=== PATIENT | male | born 1985 | race Caucasian/White ===

== ENCOUNTER 2016-09-20 12:15 | Emergency (ER) | payer OTHER ==
[~2016-09-20] VITALS: Ht 177.8 cm; Wt 68.0 kg
[2016-09-20 12:25] VITALS: BP 140/73
[2016-09-20] MEDS ORDERED: IV NORMAL SALINE 1,000ML 1,000 ML IV SCH (13:09)
--- NOTE | 2016-09-20 13:09 | PHYS DOC ---
General Chief Complaint: ABDOMINAL PAIN Stated Complaint: NAUSEA/VOMITING/ABDOMINAL PAIN Time Seen by MD: 13:08 Source: patient Exam Limitations: no limitations Problems: History of Present Illness Initial Comments Pt is 31/M to ED with n/v. Pt states epigastric abd pain began 2300, estimates 10 nonbloody emesis. No focal abd pain, last BM yesterday "nl." No fever/chills/cp/sob, no urine symptoms. Appetite preserved but fears PO intake due to n/v. No prearrival tx. Timing/Duration: 24 hours Severity: moderate Modifying Factors: worse with eating, improves with rest Associated Symptoms: nausea/vomiting, weakness Allergies: Coded Allergies: cefaclor (Verified Allergy, Mild, 09/20/16) Past Medical History Medical History: no pertinent history Surgical History: noncontributory Social History Smoker: non-smoker Alcohol: none Drugs: none Review of Systems Constitutional: denies chills, denies diaphoresis, denies fever, malaise Respiratory: denies cough, denies shortness of breath Cardiovascular: denies chest pain, denies palpitations Gastrointestinal: see HPI Genitourinary: denies discharge, denies dysuria, denies frequency, denies hematuria Musculoskeletal: denies back pain, denies joint swelling, denies neck pain Psychiatric/Neurological: denies headache, denies numbness, denies paresthesia Physical Exam General Appearance: WD/WN, no apparent distress Eyes: bilateral eye normal inspection, bilateral eye PERRL, bilateral eye EOMI Ear, Nose, Throat: hearing grossly normal, normal ENT inspection, normal pharynx (dry membranes) Neck: non-tender, supple Respiratory: normal breath sounds, no respiratory distress Cardiovascular: normal peripheral pulses, regular rate, rhythm Gastrointestinal: soft (ND, diffuse TTP no r/g/m, neg mcburn/iraheta) Rectal: deferred Back: no CVA tenderness, no vertebral tenderness Extremities: non-tender, normal inspection 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 PHYSICIAN: MICHELET MARQUES DO REASON: low abd pain n/v PROCEDURE: ACUTE ABDOMEN SERIES Acute abdomen series, 3 views, 09/20/2016: History: Abdominal pain and nausea Gas is present in large and small bowel in a nonspecific pattern. No free air seen in the abdomen. There is a small amount of radiopaque debris in the GI tract, predominantly within the stomach, compatible with ingested medication. There is no evidence of organomegaly. The heart size is normal. The lungs are clear. There is no evidence of pleural fluid. IMPRESSION: No acute abdominal abnormality is detected. DICTATED AND SIGNED BY: VIC LICONA MD DATE: 09/20/16 3245 CC: PCP,NO; MICHELET MARQUES DO ~ K+ 3.3 oral given, otherwise reassuring workup Feeling much better with fluids/meds, ready for d/c. Departure Time of Disposition: 14:07 Disposition: 01 HOME, SELF-CARE Diagnosis: gastroenteritis likely viral, hypokalemia Condition: GOOD Patient Instructions: Hypokalemia-Brief, Viral Gastroenteritis, Ddky-tk-Lets Additional Instructions: Off work thru Monday. Aggressive hydration with gatorade, water. Clear liquids today, advance slowly tomorrow as tolerated. Rx: sparkle mariet, KCL Follow up with your doctor in 3-5 days if no better. Return to ED with new or changing symptoms. MICHELET MARQUES DO September 20, 2016 13:08
[2016-09-20] MEDS ORDERED: FAMOTIDINE 20 MG/2 ML VIAL IVP ONE (13:30)
[2016-09-20] MEDS ORDERED: ONDANSETRON PF 4 MG/2 ML VIAL. IV ONE (13:30)
--- NOTE | 2016-09-20 13:40 | RAD ---
Acute abdomen series, 3 views, 09/20/2016: History: Abdominal pain and nausea Gas is present in large and small bowel in a nonspecific pattern. No free air seen in the abdomen. There is a small amount of radiopaque debris in the GI tract, predominantly within the stomach, compatible with ingested medication. There is no evidence of organomegaly. The heart size is normal. The lungs are clear. There is no evidence of pleural fluid. IMPRESSION: No acute abdominal abnormality is detected.
[2016-09-20 13:48] LABS: BASO % 1 % (0-3); EOS % 0 % (0-3); HEMATOCRIT 44.5 % (39.0-53.0); HEMOGLOBIN 15.6 g/dL (13.0-17.5); LYMPH # 0.8 x10^3/uL (1.0-4.8); LYMPH % 10 % (24-48); MEAN CORPUSCULAR HEMOGLOBIN 30 pg (25-35); MEAN CORPUSCULAR HGB CONC 35 g/dL (31-37); MEAN CORPUSCULAR VOLUME 86 fL (79-100); MONO # 0.6 x10^3/uL (0.0-1.1); MONO % 6 % (0-9); NEUT # 7.2 x10^3uL (1.8-7.7); NEUT % 83 % (31-73); PLATELET COUNT 234 x10^3/uL (140-400); RED BLOOD COUNT 5.17 x10^6/uL (4.30-5.70); RED CELL DISTRIBUTION WIDTH 12.5 % (11.5-14.5); WHITE BLOOD COUNT 8.6 x10^3/uL (4.0-11.0)
[2016-09-20 14:02] LABS: ALBUMIN 4.2 g/dL (3.4-5.0); ALBUMIN/GLOBULIN RATIO 1.4 (1.0-1.7); CALCIUM 9.8 mg/dL (8.5-10.1); CREATININE 0.7 mg/dL (0.7-1.3); GFR 133.3; POTASSIUM 3.3 mmol/L (3.5-5.1); TOTAL BILIRUBIN 0.8 mg/dL (0.2-1.0); TOTAL PROTEIN 7.3 g/dL (6.4-8.2)
[2016-09-20] MEDS ORDERED: POTA10TA5 PO (14:07)
[2016-09-20] MEDS ORDERED: ONDA4TAB10 PO (14:07)
[2016-09-20] MEDS ORDERED: POTASSIUM CHLORIDE 20 MEQ TABLET.ER. PO ONE (14:30)
== END 2016-09-20 15:00 | disposition home or self-care (01) ==
LOC: ER 12:15
DX: K52.9 Noninfective gastroenteritis and colitis, unspecified (principal); E87.6 Hypokalemia; Z88.1 Allergy status to other antibiotic agents
CPT/HCPCS: 36415; 74022; 80053; 83690; 85027; 96361; 96374; 96375; 99285; J2405; S0028; J7030